=== PATIENT | female | born 1945 | race Caucasian/White ===

== ENCOUNTER 2016-05-05 14:04 | Observation (INO) | payer MEDICARE, OTHER, SELFPAY ==
--- NOTE | ~2016-05-05 | HP ---
History And Physical [place] [id number] [facility] [place]. [address] NAME: CHE PIERRE : 49 STATUS : ADM IN [facility]#: [id number] AGE: 70 ADM/REG DATE : 05/05/16 MR#: [id number] REPORT SERV DATE: 05/05/16 DICTATED BY: JONY BERNARD DATE: 05/05/16 REPORT STATUS : Draft TRANSCRIBED BY: MODL DATE: 05/05/16 DATE OF ADMISSION: 05/05/2016 CHIEF COMPLAINT: "My doctor sent me here." BRIEF HISTORY OF PRESENT ILLNESS: The patient is a 70-year-old white female, who apparently was seeing Dr. Elver Sanchez in the office today for what appeared to be a pink colored urine as she was bleeding. Was thought to have cystitis. They were going to do oral antibiotics, but in listening to her chest, she was found to have irregular heartbeat and an EKG showed atrial fibrillation, so she has been referred to the emergency room. This patient says that she has had some mild chest tightness, but she denies any shortness of breath. She has not had any jaw pain, diaphoresis, or any other constitutional symptoms. She denies any fever, chills, nausea, vomiting, or backache. She has had some dysuria, but no frequency or urgency. She offers no other problems or complaints. In the emergency room when she arrived, she was found to have rapid atrial fibrillation with a heart rate around 143 beats per minute. She was started on a Cardizem drip and Medicine Service was asked to see the patient. REVIEW OF SYSTEMS: 12-point review of systems otherwise, negative. PAST MEDICAL HISTORY: Significant for hypothyroidism, gastroesophageal reflux, restless leg syndrome, and allergies. PAST SURGICAL HISTORY: Significant for cholecystectomy with a biliary stent that has now been removed. She has also had a hysterectomy. No history of heart surgery. No history of bowel surgery. No history of any joint replacements. ALLERGIES: TO PENICILLIN. HOME MEDICATIONS: Aspirin 81 mg once daily, Lipitor 10 mg once daily, Astelin nasal spray, Wellbutrin XL 150 mg once daily, Zyrtec 10 mg once daily, vitamin B12 1000 mcg once daily, Flonase two sprays each nostril once daily, levothyroxine 175 mcg once daily, naproxen 220 mg p.o. every 12 hours p.r.n. Prilosec 40 mg twice daily, Lyrica 50 mg once at bedtime, Phenergan 50 mg every eight hours p.r.n. for nausea, Zantac 150 mg p.o. twice daily, Requip 2 mg p.o. daily p.r.n. and 4 mg once at bedtime, vitamin D3 of 600 units p.o. every morning. SOCIAL HISTORY: She denies use of tobacco or cigarettes. She socially drinks. Has not had any drink recently. No use of illicit substances. 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 She otherwise is fully functional in all ADLs. FAMILY HISTORY: Significant for Alzheimer disease in the mother, but otherwise unremarkable. PHYSICAL EXAMINATION: GENERAL: White female, lying on a gurney, appears to be in no obvious respiratory distress. She is awake, alert. She is oriented. History And Physical [address] [address] NAME: CHE PIERRE : 49 STATUS : ADM IN [facility]#: [id number] AGE: 70 ADM/REG DATE : 05/05/16 MR#: [id number] REPORT SERV DATE: 05/05/16 DICTATED BY: JONY BERNARD DATE: 05/05/16 REPORT STATUS : Draft TRANSCRIBED BY: MICHAEL DATE: 05/05/16 VITAL SIGNS: Blood pressure is 120/74, pulse is 76, respiratory rate is 14, saturation is 98%, and temperature is 97.1. HEENT: Head is normocephalic, atraumatic. Pupils are equal, round, and reactive to light. Extraocular muscles are intact. Sclerae are anicteric. Conjunctivae normal. Oropharynx without lesion. Tongue protrusion midline. Uvula midline. NECK: Supple. No jugular venous distention. No carotid bruits or thyromegaly is appreciated. No lymphadenopathy in the neck is palpable. HEART: Regular rate rhythm. No murmurs, rubs, or gallops. PMI nondisplaced. LUNGS: Clear to auscultation both anteriorly and posteriorly without rales, rhonchi, wheezing, or consolidation. ABDOMEN: Soft, nontender. Good bowel sounds. No rebound or guarding. No organomegaly. There is no CVA tenderness. EXTREMITIES: Without cyanosis, clubbing, or edema. NEUROLOGICAL: Seems to be grossly intact. STUDIES: CT of the abdomen and pelvis, fairly unremarkable. EKG shows atrial fibrillation with flutter at a ventricular rate of about 143 beats per minute. One from the primary care's office shows rate of about 129 beats consistent with atrial fibrillation. Currently, the patient has converted back to sinus rhythm. Chest x-ray, no acute disease. LABORATORY DATA: White count is 9.7, hemoglobin of 12.3, hematocrit of 38.3, platelet count is 287,000. Sodium of 142, potassium 4.1, chloride 106, bicarb 25, BUN 10, creatinine 0.85, glucose of 105. Urinalysis; 11 rbc's, 10 wbc's, rare bacteria. Troponin less than 0.02. PT 13.3, INR 1.0. Liver function studies are normal. Leukocyte esterase small. IMPRESSION: 1. Atrial fibrillation with rapid ventricular response that is paroxysmal in nature. 2. Hemorrhagic cystitis. 3. Hypothyroidism. 4. Gastroesophageal reflux. 5. Restless legs syndrome. 6. Allergies. PLAN: The patient will be admitted for observation to a monitored bed. We will obtain serial enzymes. The patient has already been seen by Dr. Lane Hearn of Cardiology. Flecainide has been initiated. Oral Lopressor has been initiated, and this patient will need long-term anticoagulation, since she already has known paroxysmal atrial fibrillation. This patient's primary machine fixer is Dr. Amber Argueta. As far as her urine and cystitis goes, we will hold anticoagulation for now and we will start in the morning if she does not have any further hematuria. We will obtain a urinalysis as it was done in the emergency room. Urine culture has been sent from the emergency room. We will start the patient on Macrobid 100 mg p.o. twice daily. If urine culture remains negative, it could be rapidly discontinued. We will obtain a two-dimensional echocardiogram. We will do serial cardiac enzymes. This patient was complaining of some chest tightness. It would be advisable to History And Physical [address] [place]. [address] NAME: CHE PIERRE : 49 STATUS : ADM IN [facility]#: [id number] AGE: 70 ADM/REG DATE : 05/05/16 MR#: [id number] REPORT SERV DATE: 05/05/16 DICTATED BY: JONY BERNARD DATE: 05/05/16 REPORT STATUS : Draft TRANSCRIBED BY: MODL DATE: 05/05/16 think of doing a stress test if her cardiac enzymes are negative. I have discussed her care with Dr. Lane Hearn as well. The patient remains a full code. CRYSTAL/MICHAEL Jony Bernard M.D. / [id number] CC: Candida Perez M.D. Robert Drake, M.D.
--- NOTE | ~2016-05-05 | DS ---
Discharge Summary [facility] [address] [place]. [address] NAME: CHE PIERRE : 49 STATUS : DIS [place] PAT#: [id number] AGE: 70 ADM/REG DATE : 05/05/16 MR#: [id number] REPORT SERV DATE: 05/07/16 DICTATED BY: JR. CAM WILLIAM JOHN DATE: 05/07/16 REPORT STATUS : Draft TRANSCRIBED BY: MODVicky DATE: 05/07/16 ADMISSION DATE: 05/05/2016 DISCHARGE DATE: 05/07/2016 DISCHARGE DIAGNOSES: 1. Paroxysmal atrial fibrillation with reversion to sinus rhythm on flecainide. 2. Mild systolic heart failure with ejection fraction of 45%. 3. Hemorrhagic cystitis. 4. Acquired hypothyroidism. 5. Gastroesophageal reflux disease. 6. Restless legs syndrome. OPERATIONS, PROCEDURES, AND TREATMENTS: Include: 1. Chest x-ray done on 05/05/2016, which showed no acute cardiopulmonary abnormality. 2. CT of the abdomen and pelvis done on 05/05/2016, which showed both kidneys of normal size and configuration without ureteral stones, bladder stones, or hydronephrosis. Appendix was normal. There are no mass, lesion, adenopathy, or acute inflammatory process. 3. Echocardiogram done on 05/06/2016, which showed mild systolic dysfunction with ejection fraction of 45% with mild left atrial enlargement. CONSULTING PHYSICIAN: Amber Argueta M.D., of Cardiology. DISCHARGE MEDICATIONS: Include: 1. Apixaban 5 mg orally twice a day. 2. Aspirin 81 mg orally daily. 3. Lipitor 10 mg orally daily. 4. Astelin nasal spray, one spray in each nostril daily. 5. Wellbutrin 150 mg orally daily. 6. Coreg 12.5 mg orally twice a day. 7. Ranitidine 150 mg orally daily. 8. Flecainide 75 mg orally twice a day. 9. Fluticasone nasal spray, two sprays in each nostril daily. 10.Levothyroxine 175 mcg orally daily. 11.Cetirizine 10 mg orally daily. 12.Nitrofurantoin 100 mg orally twice a day through 05/10. 13.Omeprazole 40 mg orally twice a day. 14.Lyrica 50 mg at bedtime. 15.Requip 4 mg orally at bedtime and 2 mg as needed. 16.Phenergan 50 mg per rectum every eight hours as needed. 17.Vitamin D 600 units every morning. 18.Cyanocobalamin 1000 mcg orally daily. HOSPITAL COURSE: The patient was a 70-year-old white female, who was seen by Dr. Elver Sanchez in his office for pink-colored urine she was thought to have cystitis, when she was found to have an irregular heart beat. EKG showed atrial fibrillation. She was referred to [address] [address] NAME: CHE PIERRE : 49 STATUS : DIS [place] PAT#: [id number] AGE: 70 ADM/REG DATE : 05/05/16 MR#: [id number] REPORT SERV DATE: 05/07/16 DICTATED BY: JR. CAM WILLIAM JOHN DATE: 05/07/16 REPORT STATUS : Draft TRANSCRIBED BY: MICHAEL DATE: 05/07/16 the emergency room where she was indeed found to be in atrial fibrillation. She did complain of some mild chest tightness but denied shortness of breath, jaw pain, diaphoresis or other constitutional symptoms. Workup in the emergency room was significant for a blood pressure 120/74, heart rate 76, respiratory rate 14, temperature 97.1. Heart exam showed regular rate and rhythm after the patient spontaneously converted to sinus rhythm. CT of the abdomen and pelvis as detailed above. EKG showed atrial fibrillation/flutter with a ventricular rate of 143. She subsequently converted back to sinus rhythm. The patient was admitted to the hospital for atrial fibrillation and rapid ventricular response. She was seen by Dr. Lane Hearn of Cardiology. Flecainide was initiated. The patient has an established relationship with Dr. Argueta and was followed by Dr. Argueta through the remainder of the hospitalization. She was initially on metoprolol and flecainide with good control and no paroxysms of atrial fibrillation. By hospital day number two, her hematuria had resolved. She was started on apixaban and had no hematuria with this. She was observed for 36 hours in the hospital after initiation of flecainide and had no dysrhythmias or blocks. The patient had an echocardiogram which showed mildly depressed systolic function of 45%. Metoprolol was changed to carvedilol. The remainder of the patient's health problems were stable and were not addressed. The patient will be discharged home today on 05/07/2016 in good condition. She will follow up with Dr. Argueat in six to eight weeks [address] Elver Sanchez in one to two weeks. She has had cost estimates for apixaban and has a brochure for one month free supply. DISCHARGE DIET: 4 g sodium cardiac diet. ACTIVITY: As tolerated. For discharge exam and laboratory, please see daily progress note. This discharge took less than 30 minutes. HANNA/MICHAEL Gold Cam Jr, MD / [id number] CC: Gold Cam Jr, MD Robert Drake, M.D.
--- NOTE | ~2016-05-05 | CN ---
Consultation Report [facility] [address] [place]. [address] NAME: CHE DURAN : 49 STATUS : ADM IN PAT#: [id number] AGE: 70 ADM/REG DATE : 05/05/16 MR#: [id number] REPORT SERV DATE: 05/05/16 DICTATED BY: NAEEM HEARN DATE: 05/05/16 REPORT STATUS : Draft TRANSCRIBED BY: MODL DATE: 05/05/16 CARDIOLOGY CONSULTATION DATE OF CONSULTATION: INDICATIONS: Atrial fibrillation. HISTORY OF PRESENT ILLNESS: Ms. Che Duran is a pleasant 70-year-old female, who was seen in the office by Dr. Argueta. She has a background of atypical chest pain with coronary catheterization in 2014, that showed nonobstructive CAD. She has normal LV systolic function, diabetes, hypertension, peripheral neuropathy, hypothyroidism, reflux disease, and Booker's esophagus. She had presented to her primary provider's office this morning with significant suprapubic pain, urgency, and hematuria. She reports that, she has seen several blood clots come out of her urine. There, she was apparently noted to be in atrial fibrillation and was sent to the emergency room. Here, she is found to be in atrial fibrillation with heart rates ranging between 100 and 140 beats per minute. She is in no acute distress. When directly asked, she reports some sensation of chest tightness and palpitations, that have been intermittent over the last month or so. No syncope. No presyncope. No orthopnea, PND, or significant lower extremity edema. PAST MEDICAL HISTORY: As described. MEDICATIONS: Listed in [facility] medication form and reviewed. ALLERGIES: PENICILLIN. SOCIAL HISTORY: No present smoking. FAMILY HISTORY: Reviewed, noncontributory. REVIEW OF SYSTEMS: As per the HPI. Otherwise, all review of systems is negative. PHYSICAL EXAMINATION: VITAL SIGNS: Blood pressure 133/67, pulse 138, respiratory rate is 18. GENERAL: Appears stated age, no distress. EYES: Sclerae anicteric, no arcus senilis. MOUTH: Oral mucosa moist, lips acyanotic. NECK: Jugular venous pressure normal, no carotid bruits. LUNGS: Clear to auscultation bilaterally, normal inspiratory effort. CARDIAC: Irregular rhythm. No murmurs, gallops or rubs. ABDOMEN: Soft, nondistended. Mildly tender in the suprapubic region. EXTREMITIES: No edema. Consultation Report [facility] [address] [place]. [address] NAME: CHE DURAN : 49 STATUS : ADM IN PAT#: [id number] AGE: 70 ADM/REG DATE : 05/05/16 MR#: [id number] REPORT SERV DATE: 05/05/16 DICTATED BY: NAEEM HEARN DATE: 05/05/16 REPORT STATUS : Draft TRANSCRIBED BY: MODL DATE: 05/05/16 SKIN: Warm and dry. NEURO/PSYCH: Alert and oriented, nonfocal, mood appropriate. DATA: Sodium 142, potassium 4.1, creatinine 0.8. White count 9.7, hemoglobin 12.3, platelets 286. A urinalysis shows red cells, white cells, and small amount of leukocyte esterase. Chest x-ray reported no acute process. ECG from presentation is atrial fibrillation with RVR. QRS duration is 68 milliseconds. Ventricular rate is 143 beats per minute. IMPRESSION: 1. Paroxysmal atrial fibrillation. 2. Hematuria, which is the patient's presenting complaint. RECOMMENDATIONS: Begin metoprolol for rate control. Begin flecainide. Decision regarding oral anticoagulation, pending evaluation of patient's hematuria. We will follow. MACEY/MICHAEL Naeem Hearn M.D. / [id number] CC: Jony Bernard M.D.
[2016-05-05 12:07] LABS: ASCORBIC ACID (UR NOT ORDER) NEG (NEG); BILIRUBIN, URINE NEGATIVE (NEG); ER URINALYSIS TAT 0 Hrs 10 Mins; KETONE, URINE NEGATIVE (NEG); LEUKOCYTE ESTERASE(NOT OR SMALL (NEG); NITRITE (URINE) NEG (NEG); WBC (NOT ORDERED) (RFLEX) 10 (0-5)
[2016-05-05 12:19] LABS: BASOPHILS 0.4 %; BASOPHILS ABSOLUTE 0.04 10/3/uL (0.0-0.16); EOSINOPHILS 2.5 %; EOSINOPHILS ABSOLUTE 0.24 10/3/uL (0.0-0.53); HEMATOCRIT 38.3 % (36.0-48.0); HEMOGLOBIN 12.3 g/dL (12.0-16.0); IMMATURE GRANULOCYTES 0.3 %; IMMATURE GRANULOCYTES ABSOLUTE 0.03 10/3/uL (0.0-0.11); LYMPHOCYTES 21.5 %; LYMPHOCYTES ABSOLUTE 2.09 10/3/uL (0.67-4.30); MEAN CORPUS HGB CONC 32.1 g/dL (32.0-36.0); MEAN CORPUSCULAR HEMOGLOB 27.7 pg (26.0-34.0); MEAN PLATELET VOLUME 9.6 fL (9.2-13.0); MONOCYTES 10.3 %; NEUTROPHILS ABSOLUTE 6.31 10/3/uL (2.02-8.40); PLATELET COUNT 286 10/3/uL (150-400); RBC DISTRIBUTION WIDTH 14.6 % (12.0-16.0); RED CELL COUNT 4.44 10/6/uL (4.0-5.6)
[2016-05-05 12:20] LABS: MANUAL DIFF NO %; MEAN CORPUSCULAR VOLUME 86.3 fL (80-100); WHITE BLOOD CELLS 9.7 10/3/uL (4.5-10.5)
[2016-05-05 12:26] LABS: PROTIME (NOT ORD) 13.3 SEC (12.0-14.5)
[2016-05-05 12:39] LABS: A/G RATIO 1.1 (0.7-1.9); ALBUMIN 3.5 G/DL (3.5-5.0); ALKALINE PHOSPHATASE 57 U/L (45-117); BUN (BLOOD UREA NITROGEN) 10 MG/DL (6-23); CALCIUM, SERUM 8.9 MG/DL (8.5-10.4); CHLORIDE, SERUM 106 MMOL/L (96-112); CO2 (CARBON DIOXIDE) 25 MMOL/L (24-34); CREATININE 0.85 MG/DL (0.55-1.02); GFR AFRICAN AMERICAN 82 ML/MIN (>=60); GFR NON AFRICAN AMERICAN 70 ML/MIN (>=60); GLOBULIN 3.3 G/DL (2.5-4.1); GLUCOSE, SERUM 105 MG/DL (60-99); POTASSIUM, SERUM 4.1 MMOL/L (3.5-5.3); SGOT(AST) 10 U/L (5-40); SGPT(ALT) 17 U/L (5-65); SODIUM, SERUM 142 MMOL/L (135-148); TOTAL BILIRUBIN 0.5 MG/DL (0-1.2); TOTAL PROTEIN 6.8 G/DL (6.0-8.5); TROPONIN I <0.02 NG/ML (<0.05)
[~2016-05-05 14:04] MED LIST: ALEVE220 MG PO; ASAB PO; ASTELIN NAS; COREG3 PO; CYANO1000T PO; FLONASE NAS; HALF81 PO; IMDUR30 PO; LEVOTHYROXIN175 MCG PO; LEXAPRO20 PO; LIPITOR10 PO; LYRICA50 PO; PEP20 PO; PRILOSEC40 MG PO; QUESLITE PO; REQUIP XL4 MG PO; REQUIP2 PO; REQUIP4 MG PO; ROPINIROLE; SYNTHROID175 MCG PO; VITAMIN B-121000 MC1 SL; VITAMIN D1000 UNI1 PO; VITAMIN D2000 UNIT PO; WELLXL150 PO; ZANTAC 150 PO; ZYRTEC ALLGY10 MG PO; [UNRECOGNIZED DRUG - CODE] PR
[2016-05-05] MEDS ORDERED: REQUIP2 PO (15:01)
[2016-05-05 20:14] LABS: FREE T4 1.41 NG/DL (0.76-1.46); ULTRASENSITIVE TSH 0.038 MCIU/ML (0.358-3.740)
[2016-05-06 05:16] LABS: BASOPHILS 0.3 %; BASOPHILS ABSOLUTE 0.02 10/3/uL (0.0-0.16); EOSINOPHILS 3.8 %; HEMOGLOBIN 10.6 g/dL (12.0-16.0); IMMATURE GRANULOCYTES 0.4 %; IMMATURE GRANULOCYTES ABSOLUTE 0.03 10/3/uL (0.0-0.11); LYMPHOCYTES 20.1 %; MEAN CORPUS HGB CONC 31.3 g/dL (32.0-36.0); MEAN CORPUSCULAR HEMOGLOB 27.5 pg (26.0-34.0); MEAN CORPUSCULAR VOLUME 87.8 fL (80-100); MONOCYTES 11.7 %; MONOCYTES ABSOLUTE 0.93 10/3/uL (0.21-1.20); NEUTROPHILS 63.7 %; NEUTROPHILS ABSOLUTE 5.09 10/3/uL (2.02-8.40); PLATELET COUNT 264 10/3/uL (150-400); RBC DISTRIBUTION WIDTH 14.7 % (12.0-16.0); RED CELL COUNT 3.86 10/6/uL (4.0-5.6)
[2016-05-06 05:21] LABS: HEMATOCRIT 33.9 % (36.0-48.0); MANUAL DIFF NO %
[2016-05-06 11:22] LABS: BUN (BLOOD UREA NITROGEN) 11 MG/DL (6-23); CALCIUM, SERUM 8.2 MG/DL (8.5-10.4); CHLORIDE, SERUM 108 MMOL/L (96-112); CO2 (CARBON DIOXIDE) 25 MMOL/L (24-34); CREATININE 0.82 MG/DL (0.55-1.02); GFR AFRICAN AMERICAN 85 ML/MIN (>=60); GFR NON AFRICAN AMERICAN 74 ML/MIN (>=60); GLUCOSE, SERUM 100 MG/DL (60-99); PHOSPHORUS, SERUM 3.6 MG/DL (2.5-4.5); POTASSIUM, SERUM 4.3 MMOL/L (3.5-5.3); SODIUM, SERUM 143 MMOL/L (135-148); TROPONIN I <0.02 NG/ML (<0.05)
[2016-05-07] MEDS ORDERED: ELIQUIS 5 MG TAB5 MG PO (11:13)
[2016-05-07] MEDS ORDERED: FLECAINIDE50 MG PO (11:15)
[2016-05-07] MEDS ORDERED: COREG12 PO (11:15)
[2016-05-15] MEDS ORDERED: PYR100B PO (23:46)
[2016-05-15] MEDS ORDERED: BACDS PO (23:47)
[2016-05-15] MEDS ORDERED: MACROBID PO (23:47)
[2016-05-16] MEDS ORDERED: DURICEF PO (13:10)
== END 2016-05-07 11:57 | disposition home or self-care (01) ==
LOC: ER 14:04 → 6NO 15:19 → CDU1 16:30
PROVIDERS: Emergency Medicine; Internal Medicine
DX: I48.0 Paroxysmal atrial fibrillation (principal); I50.20 Unspecified systolic (congestive) heart failure; N30.91 Cystitis, unspecified with hematuria; E03.9 Hypothyroidism, unspecified; K21.9 Gastro-esophageal reflux disease without esophagitis; G25.81 Restless legs syndrome; Z79.899 Other long term (current) drug therapy; Z79.82 Long term (current) use of aspirin; Z90.49 Acquired absence of other specified parts of digestive tract; Z90.710 Acquired absence of both cervix and uterus; Z88.0 Allergy status to penicillin
CPT/HCPCS: 71010; 74176; 80053; 80069; 81001; 83880; 84439; 84443; 84484; 85025; 85610; 87077; 87086; 87186; 93005; 96374; 96375; 96376; 99285; A9270-GY; C8929; G0378; J1160; J1885; Q9957

== ENCOUNTER 2016-05-09 08:10 | Emergency (ER) | payer MEDICARE, OTHER ==
[2016-05-09 06:54] LABS: BASOPHILS 0.2 %; BASOPHILS ABSOLUTE 0.02 10/3/uL (0.0-0.16); EOSINOPHILS 2.9 %; EOSINOPHILS ABSOLUTE 0.26 10/3/uL (0.0-0.53); HEMATOCRIT 34.6 % (36.0-48.0); HEMOGLOBIN 11.4 g/dL (12.0-16.0); IMMATURE GRANULOCYTES 0.3 %; IMMATURE GRANULOCYTES ABSOLUTE 0.03 10/3/uL (0.0-0.11); LYMPHOCYTES 24.4 %; LYMPHOCYTES ABSOLUTE 2.18 10/3/uL (0.67-4.30); MANUAL DIFF NO %; MEAN CORPUS HGB CONC 32.9 g/dL (32.0-36.0); MEAN CORPUSCULAR HEMOGLOB 28.4 pg (26.0-34.0); MEAN CORPUSCULAR VOLUME 86.1 fL (80-100); MEAN PLATELET VOLUME 9.5 fL (9.2-13.0); MONOCYTES 10.9 %; MONOCYTES ABSOLUTE 0.97 10/3/uL (0.21-1.20); NEUTROPHILS 61.3 %; NEUTROPHILS ABSOLUTE 5.48 10/3/uL (2.02-8.40); PLATELET COUNT 282 10/3/uL (150-400); RBC DISTRIBUTION WIDTH 14.3 % (12.0-16.0); RED CELL COUNT 4.02 10/6/uL (4.0-5.6); WHITE BLOOD CELLS 8.9 10/3/uL (4.5-10.5)
[2016-05-09 07:01] LABS: INTERNATIONAL NORMAL RATI 1.1 UNITS (-); PROTIME (NOT ORD) 14.5 SEC (12.0-14.5)
[2016-05-09 07:02] LABS: PARTIAL THROMBO TIME 29.1 SEC (22.5-37.2)
[2016-05-09 07:10] LABS: BUN (BLOOD UREA NITROGEN) 11 MG/DL (6-23); CALCIUM, SERUM 9.1 MG/DL (8.5-10.4); CHEST PAIN PROFILE TAT 0 Hrs 20 Mins; CHLORIDE, SERUM 106 MMOL/L (96-112); CO2 (CARBON DIOXIDE) 25 MMOL/L (24-34); CREATININE 0.89 MG/DL (0.55-1.02); GFR AFRICAN AMERICAN 77 ML/MIN (>=60); GFR NON AFRICAN AMERICAN 67 ML/MIN (>=60); GLUCOSE, SERUM 111 MG/DL (60-99); POTASSIUM, SERUM 3.6 MMOL/L (3.5-5.3); SODIUM, SERUM 143 MMOL/L (135-148); TROPONIN I <0.02 NG/ML (<0.05)
[~2016-05-09 08:10] MED LIST changes: +COREG12 PO; +ELIQUIS 5 MG TAB5 MG PO; +FLECAINIDE50 MG PO
[2016-05-15] MEDS ORDERED: PYR100B PO (23:46)
[2016-05-15] MEDS ORDERED: BACDS PO (23:47)
[2016-05-15] MEDS ORDERED: MACROBID PO (23:47)
[2016-05-16] MEDS ORDERED: DURICEF PO (13:10)
== END 2016-05-09 10:30 | disposition home or self-care (01) ==
LOC: ER 08:10
PROVIDERS: Specialist
DX: R07.9 Chest pain, unspecified (principal); I48.91 Unspecified atrial fibrillation; E11.9 Type 2 diabetes mellitus without complications; Z88.0 Allergy status to penicillin; Z79.899 Other long term (current) drug therapy; Z79.82 Long term (current) use of aspirin
CPT/HCPCS: 71010; 80048; 83735; 84484; 85025; 85610; 85730; 93005; 99285; A9270-GY